=== PATIENT | female | born 1995 | race Caucasian/White ===

== ENCOUNTER 2024-03-20 19:29 | Emergency (ER) | payer SELFPAY ==
[2024-03-20 19:52] VITALS: TEMP 96.4
--- NOTE | 2024-03-20 20:51 | ERPHSYRPT ---
- History of Present Illness Time Seen by Provider: 03/20/24 19:33 Source: patient Exam Limitations: no limitations Patient Subjective Stated Complaint: pt states nasal congestion for the past 2 months Triage Nursing Assessment: pt ambulated into the er; pt is axo x4; c/o nasal congestion; pt states 9/10 pain to nares; no cough or rhinorrhea present at time of assessment; clear lung sounds in all lobes; no respiratory distress present; skin PDW; hypertensive Physician History: 28 years old presented to the ER with 2 months history of sinus/nasal congestion with occasional cough. Patient reports she has been using Stephani with no significant relief. No fever or chills reported. Denies any chest pain palpitations or shortness of breath. Is getting worse lately. Denies any known sick contact. Allergies/Adverse Reactions: No Known Drug Allergies Allergy (Unverified 03/20/24 19:43) Hx Tetanus, Diphtheria Vaccination/Date Given: Yes Hx Influenza Vaccination/Date Given: No Hx Pneumococcal Vaccination/Date Given: No Immunizations Up to Date: Yes Travel Risk - International Travel Have you traveled outside of the country in past 3 weeks: No - Emerging Infectious Disease Are you exhibiting symptoms associated with any current EIDs: Yes Symptoms: Cough: New Onset Comment: nasal congestion - Review of Systems Constitutional: No Symptoms Eyes: No Symptoms Ears, Nose, & Throat: Nose Congestion Respiratory: Cough Cardiac: No Symptoms Abdominal/Gastrointestinal: No Symptoms Genitourinary Symptoms: No Symptoms Musculoskeletal: Myalgias Skin: No Symptoms Neurological: Headache Endocrine: No Symptoms Hematologic/Lymphatic: No Symptoms - Past Medical History Pertinent Past Medical History: No - Past Surgical History Past Surgical History: Yes Gastrointestinal: Cholecystectomy - Female History Hx Last Menstrual Period: last week Hx Now: No - Social History Smoking Status: Never smoker Exposure to second hand smoke: No Drug Use: none - Social Determinants of Health Will the patient participate in the screening: Yes Do you worry about a steady place to live?: No Do you have any problems with any of the following?: No known problems In the past 12 months,have you had to go without utilities?: No Transportation Issues: No Has anyone in your support network made you feel unsafe?: No Have you or anyone in your house had to go without enough: No - Nursing Vital Signs Nursing Vital Signs: Initial Vital Signs Temperature 96.4 F 03/20/24 19:38 Pulse Rate 85 03/20/24 19:38 Respiratory Rate 20 03/20/24 19:38 Blood Pressure 143/89 03/20/24 19:38 O2 Sat by Pulse Oximetry 100 03/20/24 19:38 Pain Scale Pain Intensity 9 - Physical Exam General Appearance: no apparent distress Eye Exam: PERRL/EOMI Ears, Nose, Throat Exam: moist mucous membranes, pharyngeal erythema Neck Exam: normal inspection, non-tender, supple, full range of motion Respiratory Exam: normal breath sounds, lungs clear Cardiovascular Exam: regular rate/rhythm, normal heart sounds Gastrointestinal/Abdomen Exam: soft, normal bowel sounds, No tenderness Back Exam: normal inspection, normal range of motion Extremity Exam: normal inspection, normal range of motion Neurologic Exam: alert, oriented x 3, cooperative Skin Exam: normal color SpO2 Interpretation: normal SpO2: 100 O2 Delivery: Room Air - Progress Progress: unchanged Air Movement: good Progress Note: 28 years old is evaluated in the ER for URI symptoms for 2 weeks. No fever or chills. Lungs clear to auscultation. Has negative flu COVID RSV and strep. I believe patient has viral etiology URI symptoms. Recommended continue with Stephani and will give a short course of steroid to go home and Flonase. Discussed signs symptoms of worsening needing return to ER which she seems understanding. Stable for discharge. Blood Culture(s) Obtained: No Antibiotics given: No Counseled pt/family regarding: lab results, diagnosis, need for follow-up Medical Desision Making - Independent Historian Additional History obtained from: Spouse - Diagnostic Testing Diagnostic test were ordered, analyzed, and reviewed by me: Yes - Risk of complications The pt has a mod risk of morbidity or mortality based on: Need for prescription drug management - Departure Departure Disposition: Home Clinical Impression: URI with cough and congestion Condition: Stable Critical Care Time: No Referrals: DOCTOR,NO FAMILY [Primary Care Provider] - Follow up with PCP 1 day Instructions: Sinusitis, Adult (DC), Cough, Runny Nose, and the Common Cold (DC) Additional Instructions: Follow-up with primary care for reevaluation. Continue with Stephani. Use daily Flonase. Return to ER for any worsening. Prescriptions: Prednisone 20 mg [Deltasone 20 mg] 60 mg PO DAILY 5 Days #15 tablet Fluticasone Propionate [Flonase NASAL] 16 gm NS DAILY 10 Days #1 inh
[2024-03-20] MEDS ORDERED: DELTASONE 20 MG ONE (20:57)
[2024-03-20] MEDS: DELTASONE 20 MG PO ONE (20:57)
[2024-03-20 21:18] LABS: INFLUENZA A NEGATIVE (NEGATIVE); INFLUENZA B NEGATIVE (NEGATIVE); RESPIRATORY SYNCTIAL VIRUS NEGATIVE (NEGATIVE); SARS-CoV-2 Xpert Express NEGATIVE (NEGATIVE)
[2024-03-20 21:32] VITALS: BP 119/84; PULSE 71; RESP 15; O2SAT 100
== END 2024-03-20 21:32 | disposition home or self-care (01) ==
LOC: ED 19:29
DX: J06.9 Acute upper respiratory infection, unspecified (principal); R09.81 Nasal congestion; R05.9 Cough, unspecified
CPT/HCPCS: 0241U; 99283; A9270-GY